=== PATIENT | male | born 1950 | race Caucasian/White ===

== ENCOUNTER 2025-04-05 16:25 | Inpatient (IN) ==
[2025-04-05] MEDS: TICAGRELOR 90 MG TAB ONE (16:40)
--- NOTE | 2025-04-05 16:41 | Emergency Department Note ---
Impression & Plan STEMI (ST elevation myocardial infarction), Heart block AV third degree ED Provider Note NAME: MERARI CORRAL AGE: 74 SEX: M : 1950 ARRIVES VIA: Ambulance INFORMANT: Patient ED PROVIDER(S): Reji Hinds DO CHIEF COMPLAINT: Syncope HPI: Patient is a 74-year-old male who presents to the ER for syncopal event. He notes that he never had any chest pain or shortness of breath but had an upset stomach and had a bowel movement. It was diarrhea. He then passed out in the bathroom. He got back up and he called EMS. He does have a history of diabetes and high blood pressure. He notes he does have some cholesterol issues. Currently again has no chest pain or shortness of breath. ADDITIONAL HISTORY OBTAINED: Per HPI Chronic Medical/Social Conditions Affecting Care: Per HPI PAST MEDICAL HISTORY:See Below PAST SURGICAL HISTORY:See Below FAMILY HISTORY:See Below SOCIAL HISTORY:See Below HOME MEDICATIONS:See Below ALLERGIES:See Below VITALS:See Below PHYSICAL EXAMINATION: GENERAL: Sitting up in bed, alert, well appearing, well nourished, no distress, non-toxic EYE EXAM: normal conjunctiva. OROPHARYNX: mucous membranes are moist NECK: supple, no nuchal rigidity, no adenopathy, non-tender LUNGS: Clear to auscultation. Normal chest wall mechanics HEART: no murmurs, S1 normal and S2 normal ABDOMEN: abdomen soft, non-tender, normo-active bowel sounds, no masses, no rebound or guarding. UPPER EXTREMITIES: upper extremities are grossly normal. LOWER EXTREMITIES: No pitting edema. NEURO EXAM: Normal sensorium, cranial nerves II-XII grossly intact, normal speech, no gross weakness of arms, no gross weakness of legs. MEDICAL DECISION MAKING: Patient is a 74-year-old male brought in by EMS where he received interpreted the EKG. Heart alert was called. He was found to be in complete heart block. IV was established and blood work was obtained. Labs showed no significant leukocytosis or anemia. BMP was remarkable for an elevated glucose. LFTs and bilirubin was unremarkable. Troponin was negative. Lipase normal. Patient was given aspirin prior to arrival. Cardiology presented at bedside updated and taken to the [facility] emergently. Patient did maintain systolic pressures of 120s while down in the ER with a heart rate in the 30s due to the third-degree block from the STEMI. Consults/Care Managements Discussions: Per MDM Triage Nursing notes reviewed. Limited review of prior medical records performed Vital Signs: reviewed and remarkable for no significant abnormalities Differential diagnosis: Cardiac ischemia, aortic dissection, pulmonary embolism, pneumothorax, pneumonia, pericarditis, myocarditis, esophageal rupture, GERD, cholecystitis, pancreatitis, musculoskeletal, as well as other pathologies. ER treatment provided: See below Diagnostics interpreted by me include EKG and cardiac monitoring as listed below: -Cardiac Monitoring: An order was placed for continuous cardiac monitoring. The monitor shows a rate of 35 with sinus rhythm. -ECG: Third-degree AV block rate of [address] segment elevations in the inferior leads as well as depressions in the high lateral leads QTc 403 -Laboratory studies:Interpreted by me as stated above in MDM and shown below. Imaging studies: Xrays: As interpreted by me: Was deferred as patient was taken emergently to [facility] CTs show: none Procedures:none Critical Care: I have personally spent 33 minutes of critical care time in the direct management of this patient. This includes bedside care, interpretation of diagnostic studies, and testing, discussion with consultants, patient, and family members, and other required patient management activities. This 33 minutes is in excess of all separately billable procedures. Past Med/Surg History Problem List (Updated 04/05/25 @ 22:00 by Reji Hinds DO) Hyperglycemia Heart block AV third degree (Acute) Cardiogenic shock STEMI (ST elevation myocardial infarction) (Acute) Encounter for pre-operative examination Pre-op testing History of prediabetes BPH w urinary obs/LUTS Urinary retention Medical History Indwelling Steve catheter present Diabetic retinopathy Hx of renal calculi a single episode - no surgery needed. BPH w urinary obs/LUTS Urinary retention Hypertension Closed hip fracture (04/17/23) Diabetes mellitus NIDDM History of hypercholesterolemia Hip fracture, left s/p Fall 04/17/23 treated at [facility] Surgical History History of tonsillectomy History of appendectomy a child H/O knee surgery as a young adult - Left knee S/P hip hemiarthroplasty Left hip 03/2023 at [facility] Family History Other No family history of adverse response to anesthesia Social History Smoking Status: Unknown if ever smoked Second Hand Exposure: No; Hx Alcohol Use: No Hx Substance Use: No Preferred Language: Hungarian Communication Ability: Effective Silk Screen Cutter Required: No Beliefs That Will Affect Care: None Current Living Situation: Spouse Feels Safe at Home: Yes Safety Concerns: Feels Safe At This Time Assistive Devices: Cane, Glasses and Walker Allergies Allergies Allergy/AdvReac Type Severity Reaction Status Date / Time No Known Allergies Allergy Verified 04/05/25 16:49 Home Meds Home Medications Medication Instructions Recorded Confirmed glipizide 5 mg tablet 5 mg PO QAM 05/09/23 04/05/25 hydrochlorothiazide 25 mg tablet 25 mg PO DAILY 04/24/24 04/05/25 lisinopril 40 mg tablet 40 mg PO QAM 04/05/25 04/05/25 Previous Rx's Medication Instructions Recorded metformin 500 mg tablet 500 mg PO BID 30 days #60 tabs 04/20/23 Results & Data (ED) Vital Signs Vital Signs - 24 hr 04/05/25 16:29 Pulse Rate 48 L Respiratory Rate 20 Blood Pressure 129/63 Blood Pressure Mean 85 Pulse Oximetry 95 Oxygen Delivery Method Nasal Cannula Oxygen Flow Rate 2 Sepsis Recent Fever Within 48 Hours No Sepsis New/Unexplained Change in Mental Status No Sepsis Action Taken by Nursing No Action Required Laboratory Data 04/05/25 16:37 04/05/25 16:37 Lab Results 04/05/25 04/05/25 Range/Units 16:37 16:39 WBC 7.90 (4.8-10.8) K/ul RBC 5.02 (4.70-6.10) M/uL Hgb 13.6 L (14.0-18.0) g/dl POC Hgb 14.3 (14.0-18.0) g/dl Hct 41.6 L (42.0-52.0) % POC Hct 42 (42-52) % MCV 82.9 (80.0-100.0) fL MCH 27.1 (25.0-34.0) pg MCHC 32.7 (32.0-36.0) g/dL RDW Std Deviation 38.6 (36.4-46.3) fL RDW Coeff of Janell 12.7 (11.5-14.5) % Plt Count 192 (130-400) K/uL MPV 10.0 (9.4-12.4) fL Immature Gran % (Auto) 0.4 % Neut % (Auto) 56.1 % Lymph % (Auto) 32.8 % [place] % (Auto) 6.8 % Eos % (Auto) 3.3 % Baso % (Auto) 0.6 % Neut # (Auto) 4.43 (1.40-6.50) K/uL Lymph # (Auto) 2.59 (1.20-3.40) K/uL [place] # (Auto) 0.54 (0.11-0.59) K/uL Eos # (Auto) 0.26 (0.00-0.50) K/uL Baso # (Auto) 0.05 (0.00-0.20) K/uL Immature Gran # (Auto) 0.03 (0.01-0.20) K/uL POC Sodium 139 (135-144) mmol/L Sodium 140 (136-145) mmol/L POC Potassium 3.9 (3.3-5.0) mmol/L Potassium 3.9 (3.5-5.1) mmol/L POC Chloride 102 (101-112) mmol/L Chloride 103 (98-107) mmol/L Carbon Dioxide 29 (21-32) mmol/L POC Total CO2 23 L (24-31) mmol/L Anion Gap 8 (3-11) POC Anion Gap 19.0 (16-25) mmol/L POC BUN 22 H (7-18) mg/dl BUN 22 (6-23) mg/dl Creatinine 0.94 (0.6-1.4) mg/dl POC Creatinine 1.1 (0.6-1.3) mg/dl Est Cr Clr Drug Dosing Not Reportable eGFR 84.54 BUN/Creatinine Ratio 23.4 H (10-20) Glucose 251 H (70-99(Fasting)) mg/dl POC Glucose (other) 239 H (70-99) mg/dl Calcium 9.1 (8.6-10.3) mg/dl POC Ioniz Calcium Salvador 1.09 L (1.12-1.32) mmol/l Total Bilirubin 0.6 (0.2-1.0) mg/dl AST 12 L (13-39) U/L ALT 11 (7-52) U/L Alkaline Phosphatase 42 (34-104) U/L Troponin I High Sens 4.1 (0-20) pg/ml Total Protein 6.7 (6.0-8.3) gm/dl Albumin 4.2 (3.4-5.0) gm/dl Globulin 2.5 (2.5-4.0) gm/dl Albumin/Globulin Ratio 1.7 (0.9-2) Lipase 30 (11-82) U/L Administered Medications Eptifibatide (Integrilin) 75 mg in 100 mls @ 15 mls/hr IV .Q6H40M [facility]; Protocol Stop: 04/06/25 07:00 Last Admin: 04/05/25 19:42 Dose: 15 mls/hr Documented By: MATTY Co-signed By: DEVORAH Magnesium Sulfate/Dextrose (Magnesium Sulfate / D5w) 1 gm in 100 mls @ 50 mls/hr IV Q2H [facility] Stop: 04/05/25 23:59 Last Admin: 04/05/25 21:55 Dose: 50 mls/hr Documented By: Infusion: 04/05/25 21:55 Dose: Infused Documented By: Admin: 04/05/25 20:23 Dose: 50 mls/hr Documented By: MATTY Insulin Aspart (Insulin Aspart Per Unit Charge) 0 units SC ACHS [facility] Stop: 05/05/25 18:29 Last Admin: 04/05/25 20:35 Dose: 3 units Documented By: MATTY Co-signed By: [facility] Admin: 04/05/25 20:19 Dose: Not Given Documented By: CLC Discontinued Medications Dopamine HCl/Dextrose (Dopamine 400mg / 250ml D5w ([facility] Use Only)) Confirm Administered Dose 400 mg IV .STK-MED ONE Stop: 04/05/25 16:55 Last Admin: 04/05/25 16:55 Dose: 5 mcg.per.kg Documented By: AAF Eptifibatide (Eptifibatide 2 Mg/Ml 10 Ml Vial ([facility] [employer] [facility] Use Only)) Confirm Administered Dose 40 mg IV .STK-MED ONE Stop: 04/05/25 17:27 Last Admin: 04/05/25 18:17 Dose: 16 ml Documented By: AAF Eptifibatide (Eptifibatide Bolus/Drip) 1 each IV NOW STA Stop: 04/05/25 18:02 Last Admin: 04/05/25 18:18 Dose: 14 each Documented By: AAF Fentanyl Citrate (Fentanyl Citrate Pf 100 Mcg/2 Ml Vial) Confirm Administered Dose 100 mcg .ROUTE .STK-MED ONE Stop: 04/05/25 16:32 Last Increment: 04/05/25 18:02 Dose: 25 mcg Documented By: AAF Heparin Sodium (Porcine) (Heparin (Porcine) 1000 Unit/Ml 10 Ml ([employer] Use Only)) Confirm Administered Dose 10,000 units .ROUTE .STK-MED ONE Stop: 04/05/25 16:32 Last Admin: 04/05/25 18:15 Dose: 12,000 units Documented By: AAF Heparin Sodium (Porcine) (Heparin (Porcine) 1000 Unit/Ml 10 Ml ([employer] Use Only)) Confirm Administered Dose 10,000 units .ROUTE .ST-MED ONE Stop: 04/05/25 17:16 Last Admin: 04/05/25 18:17 Dose: Not Given Documented By: AAF Heparin Sodium/Sodium Chloride (Heparin In Nss Infusion 1000 Unit/500 Ml (2 U/Ml) Bag) Confirm Administered Dose 3,000 units IV .STK-MED ONE Stop: 04/05/25 16:32 Last Admin: 04/05/25 18:15 Dose: 3,000 units Documented By: AAF Insulin Glargine (Lantus Per Unit Charge) 10 units SC 2100 ONE Stop: 04/05/25 21:01 Last Admin: 04/05/25 21:54 Dose: 10 units Documented By: CLC Co-signed By: CP Iodixanol (Iodixanol (Visipaque) 320 Mg/Ml 100ml) Confirm Administered Dose 1 ml IV .STK-MED ONE Stop: 04/05/25 16:32 Last Admin: 04/05/25 18:15 Dose: Not Given Documented By: AAF Ioversol (Optiray 350) Confirm Administered Dose 1 ml .ROUTE .STK-MED ONE Stop: 04/05/25 16:32 Last Admin: 04/05/25 18:15 Dose: 85 ml Documented By: AAF Lidocaine HCl (Lidocaine 1% Local 20 Ml Vial) Confirm Administered Dose 1 ml .ROUTE .STK-MED ONE Stop: 04/05/25 16:59 Last Admin: 04/05/25 18:17 Dose: 1 ml Documented By: ALEJANDRA Midazolam HCl (Midazolam Hcl 1 Mg/Ml 2ml Vial) Confirm Administered Dose 2 mg .ROUTE .STK-MED ONE Stop: 04/05/25 16:32 Last Increment: 04/05/25 18:15 Dose: 1 mg Documented By: ALEJANDRA Miscellaneous (Patient's Height &/Or Weight Needed) 1 each N/A Q2H STA Stop: 04/05/25 18:06 Last Admin: 04/05/25 19:39 Dose: Not Given Documented By: MATTY Nicardipine HCl (Nicardipine 2,000 Mcg/20 Ml Syr) Confirm Administered Dose 2,000 mcg .ROUTE .STK-MED ONE Stop: 04/05/25 16:32 Last Admin: 04/05/25 18:16 Dose: 2,000 mcg Documented By: ALEJANDRA Nitroglycerin/Dextrose (Nitroglycerin/D5w 100mcg/Ml 20ml Syr) Confirm Administered Dose 2,000 mcg .ROUTE .STK-MED ONE Stop: 04/05/25 16:32 Last Admin: 04/05/25 18:16 Dose: 2,000 mcg Documented By: ALEJANDRA Norepinephrine Bitartrate (Norepinephrine/D5w 4 Mg/250 Ml) Confirm Administered Dose 4 mg IV .STK-MED ONE Stop: 04/05/25 17:03 Last Admin: 04/05/25 17:05 Dose: 4 mg Documented By: ALEJANDRA Co-signed By: KENTON Phenylephrine HCl (Phenylephrine 100mcg/Ml 5ml Syr) Confirm Administered Dose 100 mcg .ROUTE .STK-MED ONE Stop: 04/05/25 17:03 Last Admin: 04/05/25 18:17 Dose: 100 mcg Documented By: ALEJANDRA Co-signed By: KENTON Ticagrelor (Ticagrelor 90 Mg Tab) Confirm Administered Dose 180 mg .ROUTE .STK- MED ONE Stop: 04/05/25 16:39 Last Admin: 04/05/25 16:40 Dose: 180 mg Documented By: ALEJANDRA Discharge Plan Visit Data Chief Complaint: Heart Alert ED Provider: Reji Hinds Discharge Problem: STEMI (ST elevation myocardial infarction), Heart block AV third degree Patient Disposition: Admitted As Inpatient Condition: Critical
[2025-04-05 16:49] LABS: Hematocrit (blood only) 41.6 % (42.0-52.0); Hemoglobin 13.6 g/dl (14.0-18.0); Immature Granulocytes # (auto) 0.03 K/uL (0.01-0.20); Immature Granulocytes % (auto) 0.4 %; Mean Corpuscular Hemoglobin 27.1 pg (25.0-34.0); Mean Corpuscular Volume 82.9 fL (80.0-100.0); Platelet Count 192 K/uL (130-400); RDW Standard Deviation 38.6 fL (36.4-46.3); Red Blood Count 5.02 M/uL (4.70-6.10); White Blood Count 7.90 K/ul (4.8-10.8)
--- NOTE | 2025-04-05 16:50 | Cardiology Consultation ---
Date of Consultation April 05, 2025 Assessment & Plan (1) STEMI (ST elevation myocardial infarction): Presentation consistent with inferior STEMI and recommend proceeding with emergent cardiac catheterization and likely primary PCI. No apparent contraindications to procedure. Discussed risks, benefits, alternatives of procedure with patient and they are willing to proceed. Given ticagrelor 180 mg in the ED. Further recommendations pending findings of coronary angiography. History of Present Illness History of Present Illness 74-year-old man here with acute chest pain and ECG concerning for acute RI. Patient seen emergently in the ED after heart alert activated en route. No significant past cardiac history. Cardiac risk factors include type 2 diabetes on oral therapy, dyslipidemia. Other medical issues include BPH and prior hip fracture post hip replacement. Symptoms began soon after defecating. States he became increasingly nauseated and then felt weak collapsed from the toilet. Does not feel like he lost consciousness. Denies any chest pain. No real shortness of breath, no palpitations. Denies similar symptoms in the past. Continued to feel unwell on the floor and his family called EMS. In the ED presenting ECG showed complete heart block block with ventricular rate in the 30s and inferior ST elevations. Hemodynamically stable and chest pain- free. Nausea persisted but improved after Zofran Family history: Father had CABG in his 80s Allergies Allergy/AdvReac Type Severity Reaction Status Date / Time No Known Allergies Allergy Verified 04/05/25 16:49 Home Medications Medication Instructions Recorded Confirmed Type metformin 500 mg tablet 500 mg PO BID 30 days #60 tabs 04/20/23 04/05/25 Rx glipizide 5 mg tablet 5 mg PO QAM 05/09/23 04/05/25 History hydrochlorothiazide 25 mg tablet 25 mg PO DAILY 04/24/24 04/05/25 History lisinopril 40 mg tablet 40 mg PO QAM 04/05/25 04/05/25 History Patient History Medical History Indwelling Steve catheter present Diabetic retinopathy Hx of renal calculi a single episode - no surgery needed. BPH w urinary obs/LUTS Urinary retention Hypertension Closed hip fracture (04/17/23) Diabetes mellitus NIDDM History of hypercholesterolemia Hip fracture, left s/p Fall 04/17/23 treated at [facility] Surgical History History of tonsillectomy History of appendectomy a child H/O knee surgery as a young adult - Left knee S/P hip hemiarthroplasty Left hip 03/2023 at [facility] Family History Other No family history of adverse response to anesthesia Social History Smoking Status: Unknown if ever smoked Second Hand Exposure: No; Hx Alcohol Use: No Hx Substance Use: No Preferred Language: Bahamian Communication Ability: Effective Tai Chi Instructor Required: No Beliefs That Will Affect Care: None Current Living Situation: Spouse Feels Safe at Home: Yes Safety Concerns: Feels Safe At This Time Assistive Devices: Cane, Glasses and Walker Review of Systems Review of Systems: Not completed in the setting of emergent situation Physical Exam Physical Exam: General: Comfortable HEENT: Sclerae anicteric Lungs: Clear anteriorly Cardiac: Bradycardic, regular Vascular: 2+ radial Abdomen: Soft, nontender Extremities: Well perfused, no peripheral edema Neuro: Nonfocal Psych: Alert orient x3, normal affect and mood Results & Data Vital Signs (Past 12 Hours) Vital Signs Pulse Resp BP Pulse Ox O2 Del Method O2 Flow Rate 04/05/25 16:29 48 L 20 129/63 95 Nasal Cannula 2 PG Care Time/CCT Total # of Minutes Spent Total Time Spent with Patient: Total time spent is greater than 50% in coordination of care (as documented) at patient's floor/unit and/or counseling patient: Coding Level of Care Code 02602 OFFICE CONSULT LVL M Diagnoses STEMI (ST elevation myocardial infarction) I21.3
--- NOTE | 2025-04-05 16:50 | Pre Anesthesia Assessment ---
Date of Service April 05, 2025 Pre Sedation Assessment Vital Signs Pulse Resp BP Pulse Ox O2 Del Method O2 Flow Rate 04/05/25 16:47 38 L 04/05/25 16:29 48 L 20 129/63 95 Nasal Cannula 2 Cardiovascular + bradycardic Respiratory + respiratory effort normal Pre-Sedation Airway Assessment Smoking Status: Unknown if ever smoked Oral Cavity: + Dental Abnormalities Mallampati Class: III ASA: ASA4 Procedure Planning Contraindications for Sedation: none Current Medications Reviewed: Yes Notes The planned sedation has been discussed with the patient. Informed Consent was obtained. I have identified the patient, determined the appropriateness of sedation and have assessed the patient immediately prior to the procedure. All medicine(s) and interventions are by my order.
[2025-04-05] MEDS: NOREPINEPHRINE/D5W 4 MG/250 ML IV ONE (17:05)
[2025-04-05 17:08] LABS: Alanine Aminotransferase 11 U/L (7-52); Albumin Globulin Ratio 1.7 (0.9-2); Alkaline Phosphatase 42 U/L (34-104); Anion Gap 8 (3-11); Bilirubin,Total 0.6 mg/dl (0.2-1.0); Blood Urea Nitrogen 22 mg/dl (6-23); Calcium 9.1 mg/dl (8.6-10.3); Carbon Dioxide 29 mmol/L (21-32); Chloride 103 mmol/L (98-107); Globulin 2.5 gm/dl (2.5-4.0); Glucose 251 mg/dl (70-99(Fasting)); Lipase 30 U/L (11-82); Potassium 3.9 mmol/L (3.5-5.1); Sodium 140 mmol/L (136-145); Total Protein 6.7 gm/dl (6.0-8.3)
[2025-04-05] MEDS ORDERED: PHARMACY GLYCEMIC MGMT CONSULT PRN (17:52)
--- NOTE | 2025-04-05 17:54 | Post Anesthesia Assessment ---
Date of Service April 05, 2025 Post Sedation Assessment Vital Signs Pulse Resp BP Pulse Ox O2 Del Method O2 Flow Rate 04/05/25 16:47 38 L 04/05/25 16:29 48 L 20 129/63 95 Nasal Cannula 2 Recovery Score Activity: Moves 4 extremities Respiration: Deep Breath/Cough Circulation: +/-20% PreAnes Value Consciousness: Fully Awake Oxygen Saturation: O2 needed for >90% Discharge Sedation Level of Care: Fast Track Phase II
--- NOTE | 2025-04-05 17:58 | Post Operative Brief Note ---
Cardiology Brief Post Op Date of Surgery April 05, 2025 Pre & Post Diagnosis Inferior STEMI Complete heart block Procedure Cardiac cath PCI to RCA with single TALYA Temporary transvenous pacemaker placement Project Manager/Design Manager Rell Parsons MD Component Technician Showers Estimated Blood Loss 20 Findings See Below 100% mid RCA occlusion. 20% distal left main. 50% proximal LAD 2.75 x 28 mm Xience drug-eluting stent to mid RCA, postdilated with 4.0 NC LVEDP 12 Complete heart block complicated by transient cardiogenic shock requiring transvenous pacemaker placement dopamine, norepinephrine. At completion of procedure on only minimal norepinephrine (0.04 mcg/KG/minute). Pacemaker VVI at 60 bpm, 5 mA. Residual thrombus and small distal PDA, posterior AV branch. Started on Integrilin infusion, to run for 12 hours. Anesthesia Type RN Sedation Complications none Disposition Disposition: Surgical ICU
[2025-04-05] MEDS ORDERED: STAT IV Infusion **Titration per Protocol STA (18:05)
[2025-04-05] MEDS: IODIXANOL (VISIPAQUE) 320 MG/ML 100ML IV ONE (18:15)
[2025-04-05] MEDS ORDERED: NOREPINEPHRINE/D5W 4 MG/250 ML PLCT IV SCH (18:15)
[2025-04-05] MEDS: HEPARIN (PORCINE) 1000 UNIT/ML 10 ML (CATH LAB USE ONLY) ONE ×2 (18:15→18:17)
[2025-04-05] MEDS: OPTIRAY 350 ONE (18:15)
[2025-04-05] MEDS: MIDAZOLAM HCL 1 MG/ML 2ML VIAL ONE (18:15)
[2025-04-05] MEDS: niCARdipine 2,000 MCG/20 ML SYR ONE (18:16)
[2025-04-05] MEDS: NITROGLYCERIN/D5W 100MCG/ML 20ML SYR ONE (18:16)
[2025-04-05] MEDS: EPTIFIBATIDE 2 MG/ML 10 ML VIAL (CATH LAB USE ONLY) IV ONE (18:17)
[2025-04-05] MEDS: PHENYLEPHRINE 100MCG/ML 5ML SYR ONE (18:17)
[2025-04-05] MEDS: LIDOCAINE 1% LOCAL 20 ML VIAL ONE (18:17)
[2025-04-05] MEDS: EPTIFIBATIDE BOLUS/DRIP IV STA (18:18)
--- NOTE | 2025-04-05 18:24 | History & Physical Report ---
Date of Service April 05, 2025 Assessment & Plan (1) Heart block AV third degree: (2) STEMI (ST elevation myocardial infarction): (3) Hyperglycemia: (4) Cardiogenic shock: Plan #Cardiogenic Shock/ STEMI/ third degree AV block in a Patient with PMH of dyslipidemia/ HTN admitted to the ICU for above. S/p heart cath : Inferior STEMI/100% occluded mid RCA with heavy thrombus burden Patient on pressores temporary pacemaker Loaded with ticagrelor/ASA continue statin #Diabetes Mellitus 2 with hyperglycemia glycemic control critical care glucose management #Dyslipidemia continue statin Admission and Anticipated Discharge Date Admission Date: April 05, 2025 History of Present Illness Chief Complaint: heart alert Primary Care Provider: Rell Ron MD 74 yo male rwith PMH of HTN, Dyslipidemia, presents to the hospital after having a syncopal episode. Patient reported having chest pain and abdominal pain after a bowel movement. This then led to an episode of nausea and vomiting. Patient then passed out around 3 pm. His heard a thud and found him and immediately called 911. Patient was placed in an ambulance to the ED for a heart block and a STEMI. Allergies Allergy/AdvReac Type Severity Reaction Status Date / Time No Known Allergies Allergy Verified 04/05/25 16:49 Home Medications Medication Instructions Recorded Confirmed Type metformin 500 mg tablet 500 mg PO BID 30 days #60 tabs 04/20/23 04/05/25 Rx glipizide 5 mg tablet 5 mg PO QAM 05/09/23 04/05/25 History hydrochlorothiazide 25 mg tablet 25 mg PO DAILY 04/24/24 04/05/25 History lisinopril 40 mg tablet 40 mg PO QAM 04/05/25 04/05/25 History Past Med/Surg History Problem List Hyperglycemia Heart block AV third degree (Acute) Cardiogenic shock STEMI (ST elevation myocardial infarction) (Acute) Encounter for pre-operative examination Pre-op testing History of prediabetes BPH w urinary obs/LUTS Urinary retention Medical History Indwelling Steve catheter present Diabetic retinopathy Hx of renal calculi a single episode - no surgery needed. Hypertension Closed hip fracture (04/17/23) Diabetes mellitus NIDDM History of hypercholesterolemia Hip fracture, left s/p Fall 04/17/23 treated at [facility] Surgical History History of tonsillectomy History of appendectomy a child H/O knee surgery as a young adult - Left knee S/P hip hemiarthroplasty Left hip 03/2023 at [facility] Family History Other No family history of adverse response to anesthesia Social History Smoking Status: Unknown if ever smoked Second Hand Exposure: No; Hx Alcohol Use: No Hx Substance Use: No Preferred Language: Syrian Communication Ability: Effective Edging Machine Catcher Required: No Beliefs That Will Affect Care: None Current Living Situation: Spouse Feels Safe at Home: Yes Safety Concerns: Feels Safe At This Time Assistive Devices: Cane, Glasses and Walker Review of Systems Constitutional: no fever and no body aches Eyes: no blind spots Ear, Nose, Mouth, Throat: no ear pain Respiratory: no cough Cardiovascular: + chest pain Gastrointestinal: + abdominal pain, + nausea and + vomitin g Genitourinary: no dysuria Musculoskeletal: no back pain Integumentary: no lesions Neurologic: no gait abnormality Psychiatric: no behavioral changes Endocrine: no fatigue Hematologic / Lymphatic: no easy bleeding Allergy / Immunological: no GI upset with certain foods Physical Exam Constitutional: WD/WN, vitals as above Eyes: PERRL, conjunctivae normal, anicteric sclerae ENMT: external ear and nose normal, oropharynx normal Neck: trachea midline, no thyromegaly Respiratory: normal respiratory effort, lungs clear to auscultation Cardiovascular: RRR, no murmur, no edema Gastrointestinal (Abdomen): normal bowel sounds, soft, nontender, no hepatosplenomegaly Musculoskeletal: no cyanosis or clubbing, extremities motor strength 5/5 (right wrist hematoma) Skin: no rashes, warm and dry Neurologic: PERRL, EOMI, accommodation nl, no face palsy, no dysarthria Psychiatric: A+Ox3, euthymic affect Lymphatic: no cervical or axillary lymphadenopathy Results & Data Results & Data Vital Signs (Past 12 Hours) Vital Signs Pulse Resp BP Pulse Ox O2 Del Method O2 Flow Rate 04/05/25 16:47 38 L 04/05/25 16:29 48 L 20 129/63 95 Nasal Cannula 2 PG Care Time/CCT Total # of Minutes Spent Total Time Spent with Patient: Total time spent is greater than 50% in coordination of care (as documented) at patient's floor/unit and/or counseling patient: Coding Level of Care Code 65255 INT INP/OBS CARE 3/75MIN Diagnoses Heart block AV third degree I44.2 STEMI (ST elevation myocardial infarction) I21.3 Hyperglycemia R73.9 Cardiogenic shock R57.0
--- NOTE | 2025-04-05 18:28 | Cardiac Catheterization ---
[facility] Data: Manager Pharmacy Cardiac Status Clinical evaluation leading to the procedure CAD Presenation: STEMI Anginal Classification: CCS IV Diagnostic Physicians Name: Rell Parsons MD Closure Device Recommendations: PCI without planned CABG Cardiac Cath Procedure Full Procedure Date April 05, 2025 Pre-Procedure Diagnosis Pre-Procedure Diagnosis: STEMI and Arrhythmia (Complete heart block) AUC Score AUC Score: 9 Post-Procedure Diagnosis Post-Procedure Diagnosis: Severe CAD, Successful PCI and Normal Intracardiac Pressures Procedure(s) Performed Procedure(s) Performed: Coronary Angiography, Left Heart Cath, Drug Eluting Stent and Temporary Pacemaker Intelligence Research Specialist Rell Parsons MD Magnetometer Operator(s) Showers Estimated Blood Loss Estimated Blood Loss: 25 Medication(s) Medication(s): Atropine, Dopamine, Fentanyl, Heparin, Integrilin, Lidocaine 1%, Wander-Synephrine, Nicardipine, Nitroglycerin, Norepinephrine and Versed Medication(s): Ticagrelor Summary of Findings Indication: STEMI/Heart Alert Access: 6 Fr right radial artery, 6 Fr right common femoral vein Catheters: [place], pigtail, JR4 guide Findings: LM -normal caliber, 20% distal disease LAD -medium caliber, 40-50% early-mid disease, 30% distal disease. Distal vessel wraps around apex. Small D1 with 80% proximal disease. Circumflex -medium caliber, 20-30% proximal disease mid to distal luminal irregularities. OM 2, left PLB without significant disease. RCA -dominant, large caliber, 100% acute mid occlusion. LVEDP -12 -- PCI -- Antithrombotic therapy: Heparin, ticagrelor, Integrilin Procedure: After diagnostic images patient had persistent bradycardia to the 30s and worsening hypotension despite atropine and fluids. Started on dopamine and received bolus of phenylephrine Right CFV accessed with placement of 6 Fr sheath and 6 Fr [place] navigated into RV under fluoroscopic guidance With successful pacing BP improved. Started on norepinephrine and dopamine weaned off. RCA cannulated with JR4 guide BMW wire passed across lesion into distal vessel Mid RCA lesion predilated with 2.5 compliant balloon Dilated lesion stented with 2.75 x 28 mm Xience drug-eluting stent Stent post-dilated with 3.5 noncompliant balloon IC vasodilators administered for spasm Residual narrowing in mid RCA and further postdilated with 4.0 NC balloon Distal RPDA and distal right posterior AV branch with residual thrombus. Started on Integrilin infusion Post procedure DIDIER 3 flow, stent well expanded with minimal residual stenosis. Arterial Closure: TR band Summary: 1. Inferior STEMI/100% occluded mid RCA with heavy thrombus burden 2. Moderate non-culprit coronary artery disease - 4050% earlymid LAD. 80% proximal small D1 20% distal left main 20-30% proximal circumflex 3. Normal intracardiac filling pressure 4. Complete heart block 5. Cardiogenic shock 6. Successful PCI of mid RCA with single drug-eluting stent (2.75 x 20 mm Xience; postdilated with 4.0 NC balloon). 7. Successful placement of transvenous temporary pacemaker (final settings VVI at 60 bpm, 5 mA). Recommendations: Admit to ICU for continued monitoring Will leave transvenous pacemaker in place overnight. Likely remove in the morning. Loaded with ticagrelor 180 mg in ED Continue Integrilin infusion for 12 hours Continue dual-antiplatelet therapy for at least 1 year. Trend troponins until peak, Check Echo Wean off norepinephrine. Resume low-dose MIKEL as BP allows High-dose statin Hemodynamics Rest Ao:: 68/34/56 Final Ao: 117/55/76 LV: 114/12 Recommendations Recommendations: PCI without planned CABG Radiation Exposure (mGy) 1644 Contrast (mls) 85 Anesthesia Moderate 1401-1038 Procedural Complication(s) None Disposition Manager Pharmacy Holding/Recovery I attest to the content of the Intraoperative Record and any orders documented therein. Any exceptions are noted below. [facility] Card Cath Procedure Codes Cardiac Catheterization Procedure 1: Cardiovascular Cath Procedures: 05758 Coronaries and LHC (+/-LV) Therapeutic Services & Ancillary Procedure 1: Cardiovascular Tx and Anc Procedures: 18662 Temp Pacer Insert Moderate Sedation Procedure 1: Sedation/Anesthesia: 67627 Mod Sedation by the same physician;Init15 Min Child Age 5 & Up Procedure 2: Sedation/Anesthesia: 27567 Mod Sedation by the same physician; Ea [id number] Minutes Stenting Procedure 1: Cardiovascular Stent Procedures: 59222 Perc transluminal revascularization of acute sub/total occl, aMI PG Care Time/CCT Total # of Minutes Spent Total Time Spent with Patient: Total time spent is greater than 50% in coordination of care (as documented) at patient's floor/unit and/or counseling patient:
[2025-04-05] MEDS ORDERED: CARBOHYDRATES FOR HYPOGLYCEMIA PO PRN (18:45)
[2025-04-05] MEDS ORDERED: DEXTROSE 50% 50 ML SYRINGE IV PRN (18:45)
[2025-04-05] MEDS ORDERED: GLUCOSE 40% GEL 15 GM TUBE PO PRN (18:45)
[2025-04-05] MEDS ORDERED: GLUCAGON FOR INJ 1 MG VIAL SQ PRN (18:45)
[2025-04-05] MEDS ORDERED: GLUCOSE 10 TAB/TUBE PO PRN (18:45)
[2025-04-05] MEDS: Patient's HEIGHT &/or WEIGHT Needed STA (19:39)
--- NOTE | 2025-04-05 19:40 | Critical Care Consultation ---
Date of Consultation April 05, 2025 Assessment & Plan (1) STEMI (ST elevation myocardial infarction): (2) Cardiogenic shock: (3) Heart block AV third degree: (4) Hyperglycemia: Plan Reason Critically Ill: 1. STEMI, inferior with RV wall involvement 2. 3rd degree AVB s/p TVP 3. Moderate CAD 4. Hyperlipidemia 5. Hypertension 6. NIDDMII (6.6%) Neuro - CAM ICU: Negative RASS GOAL 0 APAP PRN pain/fever HOB 30 Cardiac - Cardiology consult, appreciate continued recommendations Integrilin until 04/06/2025 0700 Resume ACEI, DAPT, statin Trend troponin, repeat EKG PRN TTE ordered, lipid panel, A1c MAP goal > 65mmHg Respiratory - No acute concerned SpO2 goal > 92% Aspiration precautions, IS/Flutter GI - Diet: Advance to heart healthy as tolerated SUP: PPI Bowel regimen: Senokot RENAL/LYTES - Follow up BMP in AM Replete electrolytes as indicated Empiric Mg now No indication for harris Maintain net even to net negative ENDO - A1c pending BG 140-180 per [facility] guidelines ISS if needed while inpatient HEME - Continue Integrilin overnight Coags ID - No acute concerns LINES/TUBES/DRAINS - PIV x2 DVT PROPHYLAXIS - DAPT ongoing. Start tomorrow DISPOSITION - ICU overnight CODE STATUS - Full I have personally spent 35 minutes of critical care time in the direct management of this patient. This is a life/limb threatening event. This includes time spent evaluating patient, direct bedside care, chart review, placing orders, interpretation of diagnostic studies, discussion with consultants, patient, and family members, as well as other required patient management activities. This time is exclusive of all separately billable procedures, and teaching time and separate from and in addition to any other critical care service time. Thank you for allowing us to participate in the care of this patient. Please refer to my attending physician's documentation for any further recommendations. History of Present Illness Reason for Consultation: STEMI Requesting Physician: Chelsey Attending Physician: Neo Barbosa History of Present Illness Mr. Don Barraza is a pleasant 74YOM with a history of poor medical follow up, HTN/HLD, BPH s/p TURP, NIDDMII (6.6%) who presented to [facility] ED the evening of 04/05/2025 after a syncopal episode at home. On arrival to ED patient was found to be in complete heart block. STEMI on 12-lead. He received IV heparin as well as Brilinta in 180mg in ED. Subsequently underwent cardiac catheterization with PCI to RCA via TALYA x1. He had 50% residual non-culprit disease of proximal LAD. Stent had DIDIER III flow. He did develop cardiogenic shock requiring dopamine and norepinephrine. TVP was placed VVI 60bpm 5mA. He is admitted to ICU for continuation of care. Patient seen in ICU 103. He is AAOx3. Family at bedside. Patient is in NSR, normotensive off vasopressors. Saturating well on room air. He has no current complaints. R wrist access site is hemostatic, RN reports there was a hematoma which has been controlled. He has some discoloration and stiffness of this hand with capillary refill 3 seconds. 2nd TR band applied by Dr. Parsons who has evaluated at bedside. Post-procedure EKG showing NSR and continued inferior STEMI changes. QTc 472. Labs revealing hyperglycemia, very slight Cr bump from prior (2022). No imaging performed. ROS + R hand discomfort, otherwise 10-point ROS negative including but not limited to chest pain, dyspnea, nausea, abdominal pain, numbness/paresthesias, headache, dizziness, edema. Patient does snore and has slept in a recliner since his hip surgery in 2022. Initial A1c in 2022 was 11.1%, now on oral antihyperglycemics with better control. Does not check sugars at home. Allergies Allergy/AdvReac Type Severity Reaction Status Date / Time No Known Allergies Allergy Verified 04/05/25 16:49 Home Medications Medication Instructions Recorded Confirmed Type metformin 500 mg tablet 500 mg PO BID 30 days #60 tabs 04/20/23 04/05/25 Rx glipizide 5 mg tablet 5 mg PO QAM 05/09/23 04/05/25 History hydrochlorothiazide 25 mg tablet 25 mg PO DAILY 04/24/24 04/05/25 History lisinopril 40 mg tablet 40 mg PO QAM 04/05/25 04/05/25 History Patient History Medical History Indwelling Harris catheter present Diabetic retinopathy Hx of renal calculi a single episode - no surgery needed. BPH w urinary obs/LUTS Urinary retention Hypertension Closed hip fracture (04/17/23) Diabetes mellitus NIDDM History of hypercholesterolemia Hip fracture, left s/p Fall 04/17/23 treated at [facility] Surgical History History of tonsillectomy History of appendectomy a child H/O knee surgery as a young adult - Left knee S/P hip hemiarthroplasty Left hip 03/2023 at [facility] Family History Other No family history of adverse response to anesthesia Social History Smoking Status: Unknown if ever smoked Second Hand Exposure: No; Hx Alcohol Use: No Hx Substance Use: No Preferred Language: Hungarian Communication Ability: Effective Clinical Product Manager Required: No Beliefs That Will Affect Care: None Current Living Situation: Spouse Feels Safe at Home: Yes Safety Concerns: Feels Safe At This Time Assistive Devices: Cane, Glasses and Walker Review of Systems Review of Systems: All systems reviewed & are unremarkable except as noted in Subjective Physical Exam Constitutional: well developed, well nourished and average body habitus; no acute distress Eyes: PERRL, conjunctivae normal, anicteric sclerae ENMT: external ear and nose normal, oropharynx normal 1 central incisor is absent Neck: trachea midline, no thyromegaly Respiratory: normal respiratory effort, lungs clear to auscultation Cardiovascular: Rate/Rhythm: regular rate and regular rhythm Heart Sounds: no murmur Vessels: no JVD and no carotid bruit Extremities: normal capillary refill; no edema capillary refill R hand diminished with TR band in place Gastrointestinal (Abdomen): normal bowel sounds, soft, nontender, no hepatosplenomegaly Musculoskeletal: Head/Neck/Chest: normocephalic and head atraumatic Extremities: strength 5/5 throughout Warm and well-perfused peripherally. R hand as above Skin: no rashes, warm and dry Neurologic: PERRL, EOMI, accommodation nl, no face palsy, no dysarthria Genitourinary: Deferred Results & Data Results & Data Vital Signs (Past 12 Hours) Vital Signs Pulse Resp BP Pulse Ox O2 Del Method O2 Flow Rate 04/05/25 19:15 94 H 20 94 04/05/25 19:09 93 H 17 96 04/05/25 18:51 95 H 21 97 04/05/25 18:45 146/88 H 04/05/25 18:42 97 H 28 H 94 04/05/25 18:38 152/88 H 04/05/25 18:36 98 H 18 96 04/05/25 18:33 97 H 24 97 04/05/25 18:33 147/82 H 04/05/25 18:30 95 H 18 96 04/05/25 18:21 95 H 23 95 Room Air 04/05/25 18:15 130/86 04/05/25 16:47 38 L 04/05/25 16:29 48 L 20 129/63 95 Nasal Cannula 2 Laboratory Results Reviewed Diagnostic Findings Reviewed Medications Administered See MAR Coding Level of Care Code 57518 IN/OBS CONSULT LVL 2,35M Diagnoses STEMI (ST elevation myocardial infarction) I21.3 Cardiogenic shock R57.0 Heart block AV third degree I44.2 Hyperglycemia R73.9 Time Spent (min) 35
[2025-04-05] MEDS: EPTIFIBATIDE 75 MG/100 ML VIAL IV SCH (19:42)
[2025-04-05] MEDS: INSULIN ASPART PER UNIT CHARGE SC SCH (20:19)
[2025-04-05] MEDS: MAGNESIUM SULFATE / D5W 1 GM/100 ML BAG IV SCH (20:23)
[2025-04-05] MEDS: LANTUS PER UNIT CHARGE SC ONE (21:54)
[2025-04-05] MEDS: ONDANSETRON INJ 2 MG/ML 2 ML VIAL IV PRN (23:09)
[2025-04-06] MEDS: INSULIN ASPART PER UNIT CHARGE SC SCH (00:27)
[2025-04-06] MEDS: PROCHLORPERAZINE 5 MG in SYRINGE 4 ML IV ONE (00:35)
[2025-04-06 04:54] LABS: Hematocrit (blood only) 37.2 % (42.0-52.0); Hemoglobin 12.9 g/dl (14.0-18.0); Immature Granulocytes # (auto) 0.05 K/uL (0.01-0.20); Immature Granulocytes % (auto) 0.4 %; Mean Corpuscular Hemoglobin 28.6 pg (25.0-34.0); Mean Corpuscular Volume 82.5 fL (80.0-100.0); Platelet Count 178 K/uL (130-400); RDW Standard Deviation 38.8 fL (36.4-46.3); Red Blood Count 4.51 M/uL (4.70-6.10); White Blood Count 11.47 K/ul (4.8-10.8)
[2025-04-06] MEDS: LACTATED RINGER'S 500 ML IV ONE ×3 (05:00→16:45)
[2025-04-06 05:11] LABS: Anion Gap 9.0 (3-11); Blood Urea Nitrogen 24.0 mg/dl (6-23); Calcium 8.8 mg/dl (8.6-10.3); Carbon Dioxide 30.0 mmol/L (21-32); Chloride 103.0 mmol/L (98-107); Cholesterol 196.0 mg/dl (0-200); Creatinine Clr Calc Pharmacy 90.4 ml/min; Glucose 184.0 mg/dl (70-99(Fasting)); HDL Cholesterol 39.0 mg/dl; Magnesium 2.2 mg/dl (1.7-2.4); Potassium 3.9 mmol/L (3.5-5.1); Sodium 142.0 mmol/L (136-145); Triglycerides 63.0 mg/dl (0-150)
[2025-04-06] MEDS: LANTUS PER UNIT CHARGE SC SCH (08:11)
[2025-04-06] MEDS: ACETAMINOPHEN 325 MG TAB PO PRN (08:12)
[2025-04-06] MEDS: TICAGRELOR 90 MG TAB PO SCH (08:12)
[2025-04-06] MEDS: hydroCHLOROthiazide 25 MG TAB PO SCH (08:13)
[2025-04-06] MEDS: ASPIRIN 81 MG ECTAB PO SCH (08:13)
[2025-04-06] MEDS: ATORVASTATIN 40 MG TAB PO SCH (08:14)
[2025-04-06] MEDS: DOCUSATE SODIUM/SENNA 50/8.6MG TAB PO SCH (08:14)
--- NOTE | 2025-04-06 08:22 | Critical Care Progress Note ---
Date of Service April 06, 2025 Assessment & Plan (1) STEMI (ST elevation myocardial infarction): (2) Cardiogenic shock: (3) Heart block AV third degree: (4) Diabetes mellitus: Plan Patient is a 74-year-old male with a past medical history significant for hypertension, hyperlipidemia, non-insulin dependent diabetes mellitus type 2 who presented to the hospital after an episode of syncope at home. In the emergency department he was found to be in complete heart block with evidence of STEMI on twelve-lead EKG. The patient was initiated on heparin and was given Brilinta. He was taken emergently to left heart catheterization. The patient was found to have 100% RCA occlusion and underwent balloon dilation and drug-eluting stent placement x 1. The patient was hypotensive and bradycardic. He received fluid bolus, dopamine, phenylephrine, norepinephrine and atropine. A TVP was inserted and the patient's blood pressure improved after pacing was initiated. The patient was admitted to the medical ICU and critical care was consulted. Reason Critically Ill: ST elevation myocardial infarction, status post [facility] 04/05/2025 with TALYA to RCA Cardiogenic shock Hide agreed heart block Diabetes mellitus, known insulin dependent Neuro: Awake and alert. No deficits. No concerns at this time. Cardiac: Status post left heart catheterization 04/05/2025: RCA had 100% acute mid occlusion, LAD and circumflex with nonobstructive disease. Drug-eluting stent and balloon dilation. Cardiogenic shock Presented with bradycardia and hypotension, received fluid bolus, dopamine, phenylephrine and atropine. Blood pressure improved after TVP was placed. -Patient was on a Integrilin infusion, had oozing from TVP insertion site so this was held. -Cardiology is consulted and following along. Appreciate assistance with case. -Aspirin, Brilinta and statin. -No longer in shock. Has not required temporary pacing this morning. Heart rate is 80s. Cardiology removed TVP today. Respiratory: On room air. No wheezing or shortness of breath. Chest x-ray on admission appe ars clear. GI: Intermittent nausea overnight when he was bradycardic. This has resolved at this time. Cardiac and diabetic diet has been ordered. RENAL/LYTES: No evidence of MARÍA. Making good urine. Received total of 1 L of fluid overnight when the patient was nauseous and not maintaining good p.o. intake. Electrolytes acceptable. : Good urine output. History of TURP. ENDO: History of noninsulin-dependent type 2 diabetes. A1c is pending. Blood sugar acceptable today. HEME: Did have some oozing when he was on the Integrilin infusion. This is on hold. Hemoglobin is stable. ID: No evidence of acute infection. No antibiotics indicated. Feeding: Cardiac and diabetic diet Fluids: None Analgesia: None Activity: Bedrest while TVP is in place. Thromboprophylaxis: Will place SCDs while in bed. Ulcer prophylaxis: Not indicated Glycemic control: Sli basal bolus insulin ding scale insulin, Lantus Bowels: Docusate senna Indwelling catheters: TVP in right groin Antibiotics: None Plan: Patient is overall doing well this morning status post STEMI with TALYA to RCA x 1. Patient is no longer in shock. He is no longer requiring pacing as of this morning. TVP out. Patient will need to stay in the ICU overnight. On DAPT and statin. I have personally spent 45 minutes of critical care time in the direct management of this patient. This is a life/limb threatening event. This includes time spent evaluating patient, direct bedside care, chart review, placing orders, interpretation of diagnostic studies, discussion with consultants, patient, and family members, as well as other required patient management activities. This time is exclusive of all separately billable procedures, and teaching time and separate from and in addition to any other critical care service time. Admission and Anticipated Discharge Date Admission Date: April 05, 2025 Subjective Past 24-hour events: Patient seen and examined this morning during rounds. Admitted to the ICU after STEMI with RCA stent and heart block requiring TVP. Overnight the patient did well. Was on a Integrilin infusion however was oozing from his TVP insertion site in the right groin so this was stopped. The patient was intermittently bradycardic requiring pacing overnight and during these episodes of bradycardia was nauseous. The patient also had a large hematoma in his right wrist at the cardiac catheterization site that required pressure bandaging. Rounding: Patient is doing well this morning. Awake and alert, denies any active nausea, chest pain, chest pressure or shortness of breath. He is resting comfortably on room air. Heart rate is 80s, not paced currently. Not having a great appetite but interested in trying some cream of wheat this morning and maybe some soup for lunch. Receiving a 500 cc bolus. Patient is resting comfortably on room air. The right groin at the TVP insertion site is bandaged, there is some old blood partially saturating the bandage. No active bleeding. No hematoma appreciated. The right wrist is bruised and slightly swollen. Hand is somewhat cool but there is good capillary leave well and no mottling of the extremity. Intake: 1280 mL Output: 1885 mL Net: -104 mL Feeding: Cardiac and diabetic diet IV infusions: None Indwelling catheters: TVP in right groin Laboratory: CBC: Hemoglobin 12.9, WBC 11.4, platelets 178 Chemistry: Sodium 142, potassium 3.9, chloride 103, bicarb 30, bun 24, creatinine 0.84, glucose 184 Review of Systems Review of Systems: A 12 point review of systems was obtained in detail. Negative except as noted in HPI. Physical Exam Physical Exam: Physical examination: General: Well-appearing, well-kept, well-nourished and not in acute distress. HEENT: Normocephalic, atraumatic. Extraocular movements intact. Sclera are nonicteric. No JVD appreciated. Skin: Warm and dry. No rashes appreciated. No jaundice appreciated. -Right groin dressing partially saturated with blood, TVP in place. -Right wrist with mild bruising and swelling, good capillary refill. Cardiovascular: Heart is a regular rate and rhythm, no murmurs appreciated on my exam. No significant lower extremity edema. -Not actively paced. TVP is in place set at a rate of 60, patient is beating in the 80s on his own at this time. Lungs: Clear bilaterally, no wheezing appreciated. No crackles. Nontachypneic. Resting comfortably on room air. Abdomen: Nondistended, nontender to palpation. No bruising. Musculoskeletal: Normal muscle mass and tone. No gross joint deformity abnormalities. No effusions appreciated. Neurologic: Awake and alert, oriented. CN II through XII are grossly intact. Speech is fluent. Nonfocal exam. Psychiatric: Appropriate cooperative during my exam. Results & Data Results & Data Vital Signs (Past 12 Hours) Vital Signs Pulse Resp BP Pulse Ox 04/06/25 06:00 120/64 04/06/25 05:54 83 20 97 04/06/25 05:42 81 18 96 04/06/25 05:30 139/70 04/06/25 05:24 85 14 98 04/06/25 05:18 81 13 98 04/06/25 05:00 127/68 04/06/25 04:57 77 19 97 04/06/25 04:33 78 18 96 04/06/25 04:30 99/61 L 04/06/25 04:00 103/59 L 04/06/25 04:00 76 14 97 04/06/25 03:24 78 16 96 04/06/25 03:06 78 17 93 04/06/25 03:00 120/67 04/06/25 02:36 77 17 95 04/06/25 02:30 115/63 04/06/25 02:09 75 12 93 04/06/25 02:00 130/73 04/06/25 01:33 82 17 95 04/06/25 01:30 143/74 H 04/06/25 01:27 76 12 95 04/06/25 01:00 136/71 04/06/25 00:51 77 15 95 04/06/25 00:42 80 15 95 04/06/25 00:30 143/77 H 04/06/25 00:00 152/90 H 04/06/25 00:00 79 04/05/25 23:51 79 12 97 04/05/25 23:42 82 15 96 04/05/25 23:30 160/92 H 04/05/25 23:09 79 14 96 04/05/25 23:06 149/82 H 04/05/25 21:45 150/103 H 04/05/25 21:30 87 18 99 04/05/25 21:30 165/91 H 04/05/25 21:00 83 13 97 04/05/25 20:30 125/77 04/05/25 20:30 90 22 97 04/05/25 20:15 130/72 04/05/25 20:12 93 H 24 97 04/05/25 20:03 94 H 25 H 98 04/05/25 20:00 135/80 04/05/25 19:57 92 H 28 H 99 [place] [address] CRITICAL CARE 1ST 30-74M Patient Type New History Detailed Exam Detailed Medical Decision Making Moderate Complexity Diagnoses STEMI (ST elevation myocardial infarction) I21.3 Cardiogenic shock R57.0 Heart block AV third degree I44.2 Diabetes mellitus E11.9
--- NOTE | 2025-04-06 08:32 | Cardiology Progress Note ---
Date of Service April 06, 2025 Assessment & Plan (1) STEMI (ST elevation myocardial infarction): Plan: 100% mid RCA post TALYA 2. Complete heart block with MIpost transvenous pacemaker 3. Transient cardiogenic shock 4. Type 2 diabetes 5. Hypertension 6. DyslipidemiaLDL 144 7. Preserved LV functionEF 55% inferior/inferolateral hypokinesis Patient doing well this morning. Nausea improved. No chest pain. Troponin peaking Hemodynamically and electrically stable. Has not required use of pacemaker this morning. Baseline ECG with no conduction abnormalities. Echocardiogram this morning shows preserved LV function. Removed transvenous pacemaker and venous sheath at bedside this morning. Continue to monitor telemetry, will continue to hold off on beta-luis a for now Integrilin discontinued Continue DAPT with aspirin, ticagrelor Restarted on home lisinopril this morning Reluctant to retry statin after experience with pain years ago while on atorvastatin (also had kidney stones at the time). Agreeable to trying rosuvastatin Continue PPI Long-term consider SGLT2 or GLP-1 From a cardiac standpoint okay with transfer to telemetry. Possible discharge tomorrow. Appreciate ICU and hospital medicine care. Admission and Anticipated Discharge Date Admission Date: April 05, 2025 Subjective Feeling well this morning. Had some episodes of nausea with bradycardia overnight. This morning nausea resolved. No chest pain or shortness of breath. Telemetry reviewedno significant arrhythmias. No recent pacing Review of Systems Review of Systems: All systems reviewed & are unremarkable except as noted in HPI & below Physical Exam Physical Exam: General: Comfortable HEENT: Sclerae anicteric Lungs: Clear to auscultation bilaterally Cardiac: Regular rate and rhythm, no murmurs. Vascular: Right radial artery access site with diffuse ecchymosis extending from thumb up to mid forearm. Intact radial pulse. Normal sensation/capillary refill distally. Oozing around right CFV access site, no hematoma Abdomen: Soft, nontender Extremities: Well perfused, no peripheral edema Neuro: Nonfocal Psych: Alert orient x3, normal affect and mood Results & Data Vital Signs (Past 12 Hours) Vital Signs Pulse Resp BP Pulse Ox 04/06/25 06:00 120/64 04/06/25 05:54 83 20 97 04/06/25 05:42 81 18 96 04/06/25 05:30 139/70 04/06/25 05:24 85 14 98 04/06/25 05:18 81 13 98 04/06/25 05:00 127/68 04/06/25 04:57 77 19 97 04/06/25 04:33 78 18 96 04/06/25 04:30 99/61 L 04/06/25 04:00 103/59 L 04/06/25 04:00 76 14 97 04/06/25 03:24 78 16 96 04/06/25 03:06 78 17 93 04/06/25 03:00 120/67 04/06/25 02:36 77 17 95 04/06/25 02:30 115/63 04/06/25 02:09 75 12 93 04/06/25 02:00 130/73 04/06/25 01:33 82 17 95 04/06/25 01:30 143/74 H 04/06/25 01:27 76 12 95 04/06/25 01:00 136/71 04/06/25 00:51 77 15 95 04/06/25 00:42 80 15 95 04/06/25 00:30 143/77 H 04/06/25 00:00 152/90 H 04/06/25 00:00 79 04/05/25 23:51 79 12 97 04/05/25 23:42 82 15 96 04/05/25 23:30 160/92 H 04/05/25 23:09 79 14 96 04/05/25 23:06 149/82 H 04/05/25 21:45 150/103 H 04/05/25 21:30 87 18 99 04/05/25 21:30 165/91 H 04/05/25 21:00 83 13 97 PG Care Time/CCT Total # of Minutes Spent Total Time Spent with Patient: Total time spent is greater than 50% in coordination of care (as documented) at patient's floor/unit and/or counseling patient: Coding Level of Care Code 30966 SUB INP/OBS CARE 3/50MIN Diagnoses STEMI (ST elevation myocardial infarction) I21.3
--- NOTE | 2025-04-06 08:51 | XCELERA ---
[id number] [id number]
[2025-04-06] MEDS: ROSUVASTATIN CALCIUM 20 MG TAB PO SCH (10:51)
[2025-04-06 11:10] LABS: Hemoglobin A1C 6.8 % (4.5-5.6)
--- NOTE | 2025-04-06 12:33 | Electrocardiogram Report ---
Test Reason : Blood Pressure : */* mmHG Vent. Rate : 35 BPM Atrial Rate : 38 BPM P-R Int : * ms QRS Dur : 98 ms QT Int : 528 ms P-R-T Axes : 60 50 95 degrees QTcB Int : 403 ms Sinus bradycardia with A-V dissociation and Junctional bradycardia Inferior infarct ACUTE MT / STEMI Consider right ventricular involvement in acute inferior infarct Abnormal ECG When compared with ECG of 17-Apr-2023 18:30, Significant changes have occurred Confirmed by Matthias Hall ([id number]) on 04/06/2025 12:32:37 PM Referred By: Neo Barbosa Confirmed By: Matthias Hall
--- NOTE | 2025-04-06 12:36 | Electrocardiogram Report ---
Test Reason : Blood Pressure : */* mmHG Vent. Rate : 92 BPM Atrial Rate : 92 BPM P-R Int : 192 ms QRS Dur : 90 ms QT Int : 382 ms P-R-T Axes : 80 36 88 degrees QTcB Int : 472 ms Normal sinus rhythm * ACUTE CA Inferior infarct , possibly acute Consider right ventricular involvement in acute inferior infarct Abnormal ECG When compared with ECG of 05-Apr-2025 16:29, (unconfirmed) Significant changes have occurred Confirmed by Matthias Hall ([id number]) on 04/06/2025 12:36:19 PM Referred By: Neo Barbosa Confirmed By: Matthias Hall
--- NOTE | 2025-04-06 13:13 | Pharmacy Report ---
Pharmacy Glycemic Short Note 2 - Date of Service April 06, 2025 - Glycemic Short BSG Results (Last 24 hours): 04/05/25 04/05/25 04/05/25 16:37 16:39 18:23 Glucose 251 H POC Glucose 183 H POC Glucose (other) 239 H 04/05/25 04/06/25 04/06/25 20:27 00:12 04:29 Glucose 184 H POC Glucose 223 H 140 H POC Glucose (other) 04/06/25 04/06/25 04/06/25 04:32 07:29 11:00 Glucose POC Glucose 171 H 172 H 158 H POC Glucose (other) OUTPATIENT ANTIDIABETIC REGIMEN: * glipizide 5 mg qd, metforminn 500 mg BID * A1c 6.8% 04/06/25 ASSESSMENT: * Patient admitted with complete heart block/STEMI, s/p PCI w/ TALYA x 1 * BSGs initially elevated have trended downward to goal with basal/bolus * Continue with 10 units BID of lantus. * Novolog ~ weight stress 2 dosing. PLAN FOR INPATIENT GLYCEMIC CONTROL: * Hold outpatient oral diabetes medications * Basal insulin * Lantus 10 units SQ BID * Bolus insulin * NovoLog per scale ACHS or Q6hrs while NPO * Goal Range: Low 120 mg/dL - High 160 mg/dL * Correction Factor: 25 mg/dL/unit * Nutritional / Prandial insulin per carb ratio of 1 unit per 9 grams CHO consumed
--- NOTE | 2025-04-06 21:55 | Hospitalist Progress Note ---
Date of Service April 06, 2025 Assessment & Plan (1) Heart block AV third degree: (2) STEMI (ST elevation myocardial infarction): (3) Hyperglycemia: (4) Cardiogenic shock: Plan #Cardiogenic Shock/ STEMI/ third degree AV block in a Patient with PMH of dyslipidemia/ HTN admitted to the ICU for above. S/p heart cath : Inferior STEMI/100% occluded mid RCA with heavy thrombus burden Pressors discontinued temporary pacemaker: limited activty,; patient has been mainting his heart rate Loaded with ticagrelor/ASA continue statin #Diabetes Mellitus 2 with hyperglycemia glycemic control critical care glucose management #Dyslipidemia continue statin Admission and Anticipated Discharge Date Admission Date: April 05, 2025 Subjective Patient reports no new symptoms. He reports his hand is feeling better. Physical Exam Constitutional: WD/WN, vitals as above Eyes: PERRL, conjunctivae normal, anicteric sclerae ENMT: external ear and nose normal, oropharynx normal Neck: trachea midline, no thyromegaly Respiratory: normal respiratory effort, lungs clear to auscultation Cardiovascular: RRR, no murmur, no edema Gastrointestinal (Abdomen): normal bowel sounds, soft, nontender, no hepatosplenomegaly Skin: no rashes, warm and dry Neurologic: PERRL, EOMI, accommodation nl, no face palsy, no dysarthria Psychiatric: A+Ox3, euthymic affect Lymphatic: no cervical or axillary lymphadenopathy Results & Data Results & Data Vital Signs (Past 12 Hours) Vital Signs Pulse Resp BP 04/06/25 18:12 78 17 04/06/25 17:06 73 13 112/61 04/06/25 16:03 73 17 04/06/25 16:01 113/58 L 04/06/25 16:00 76 04/06/25 15:42 74 15 04/06/25 15:36 71 12 04/06/25 15:36 106/56 L 04/06/25 15:00 74 20 04/06/25 14:00 70 8 L 04/06/25 13:03 75 23 04/06/25 12:39 75 11 L 04/06/25 12:19 112/61 04/06/25 12:15 79 14 04/06/25 12:09 81 19 04/06/25 11:31 113/74 04/06/25 11:30 79 18 04/06/25 11:03 74 16 04/06/25 11:00 107/71 04/06/25 10:57 76 17 04/06/25 10:38 106/64 04/06/25 10:36 76 9 L 04/06/25 10:30 90/56 L 04/06/25 10:27 75 14 04/06/25 10:00 81 19 PG Care Time/CCT Total # of Minutes Spent Total Time Spent with Patient: Total time spent is greater than 50% in coordination of care (as documented) at patient's floor/unit and/or counseling patient: Coding Level of Care Code 15434 SUB INP/OBS CARE 3/50MIN Diagnoses Heart block AV third degree I44.2 STEMI (ST elevation myocardial infarction) I21.3 Hyperglycemia R73.9 Cardiogenic shock R57.0
[2025-04-07 04:41] LABS: Hematocrit (blood only) 37.9 % (42.0-52.0); Hemoglobin 13.0 g/dl (14.0-18.0); Immature Granulocytes # (auto) 0.02 K/uL (0.01-0.20); Immature Granulocytes % (auto) 0.2 %; Mean Corpuscular Hemoglobin 28.4 pg (25.0-34.0); Mean Corpuscular Volume 82.9 fL (80.0-100.0); Platelet Count 153 K/uL (130-400); RDW Standard Deviation 38.7 fL (36.4-46.3); Red Blood Count 4.57 M/uL (4.70-6.10); White Blood Count 9.11 K/ul (4.8-10.8)
[2025-04-07 04:56] LABS: Anion Gap 8.0 (3-11); Blood Urea Nitrogen 20.0 mg/dl (6-23); Calcium 8.7 mg/dl (8.6-10.3); Carbon Dioxide 29.0 mmol/L (21-32); Chloride 104.0 mmol/L (98-107); Creatinine Clr Calc Pharmacy 100.1 ml/min; Glucose 89.0 mg/dl (70-99(Fasting)); Magnesium 2.1 mg/dl (1.7-2.4); Potassium 3.6 mmol/L (3.5-5.1); Sodium 141.0 mmol/L (136-145)
[2025-04-07] MEDS: ICU ELECTROLYTE REPLACEMENT PROTOCOL SCH (06:52)
[2025-04-07 08:12] VITALS: BP 150/93; PULSE 85; RESP 18; O2SAT 97
[2025-04-07] MEDS: POTASSIUM CHLORIDE CRTAB 20 MEQ TABCR PO SCH (08:53)
--- NOTE | 2025-04-07 11:34 | Cardiology Progress Note ---
Date of Service April 07, 2025 Assessment & Plan (1) STEMI (ST elevation myocardial infarction): Plan: 100% mid RCA post TALYA 2. Complete heart block with MIpost transvenous pacemaker 3. Transient cardiogenic shock 4. Type 2 [id number] 6.8 5. Hypertensionpreviously on MIKEL/thiazide 6. DyslipidemiaLDL 144 7. Preserved LV functionEF 55% inferior/inferolateral hypokinesis Continues to do well from a cardiac standpoint. No recurrent anginal symptoms. Troponin peaked. Remained hemodynamically and electrically stable overnight. From a cardiac standpoint okay with discharge today. Continue DAPT with aspirin, ticagrelor Home on reduced dose lisinopril 20 mg daily. Will hold prior HCTZ. His will monitor daily blood pressures. Resume as needed as an outpatient. Will hold off on beta-luis a in the setting of prior bradycardia and preserved LV function. Continue rosuvastatin 20 mg daily Continue PPI resume Long-term consider SGLT2 or GLP-1 We briefly discussed cardiac rehab. Agreeable and will arrange as an outpatient Follow-up with me in 1 to 2 weeks. Admission and Anticipated Discharge Date Admission Date: April 05, 2025 Subjective Feeling well this morning. Up walking in the halls without any chest pain or shortness of breath. Does report some baseline unsteadiness. Telemetry reviewedno events. Review of Systems Review of Systems: All systems reviewed & are unremarkable except as noted in HPI & below Physical Exam Physical Exam: General: Comfortable HEENT: Sclerae anicteric Lungs: Clear to auscultation bilaterally Cardiac: Regular rate and rhythm, no murmurs. Vascular: Right radial artery access site with diffuse ecchymosis extending from thumb up to mid forearm. Intact radial pulse. Normal sensation/capillary refill distally. right CFV access site, no hematoma Abdomen: Soft, nontender Extremities: Well perfused, no peripheral edema Neuro: Nonfocal Psych: Alert orient x3, normal affect and mood Results & Data Vital Signs (Past 12 Hours) Vital Signs Pulse Resp BP Pulse Ox 04/07/25 08:06 85 18 04/07/25 08:00 78 04/07/25 07:30 74 22 04/07/25 07:03 74 12 97 04/07/25 07:00 150/93 H 04/07/25 06:48 74 20 100 04/07/25 06:39 77 33 H 96 04/07/25 06:00 163/88 H 04/07/25 06:00 69 12 96 04/07/25 05:00 170/97 H 04/07/25 05:00 81 15 98 04/07/25 04:15 77 22 180/91 H 96 04/07/25 03:00 76 18 112/64 95 04/07/25 03:00 112/64 04/07/25 03:00 70 15 94 04/07/25 02:00 70 16 95 04/07/25 02:00 114/64 04/07/25 01:00 168/94 H 04/07/25 01:00 168/94 H 04/07/25 01:00 73 10 L 96 04/07/25 00:00 71 8 L 98 04/07/25 00:00 142/74 H 04/07/25 00:00 74 PG Care Time/CCT Total # of Minutes Spent Total Time Spent with Patient: Total time spent is greater than 50% in coordination of care (as documented) at patient's floor/unit and/or counseling patient: Coding Level of Care Code 00230 SUB INP/OBS CARE 2/35MIN Diagnoses STEMI (ST elevation myocardial infarction) I21.3
--- NOTE | 2025-04-07 22:51 | Discharge Summary ---
Discharge Summary Date of Service April 07, 2025 Principal Dx & Hospital Course #1 = Principal Diagnosis (1) Heart block AV third degree: (2) STEMI (ST elevation myocardial infarction): (3) Hyperglycemia: (4) Cardiogenic shock: Plan #Cardiogenic Shock/ STEMI/ third degree AV block in a Patient with PMH of dyslipidemia/ HTN admitted to the ICU for above. S/p heart cath : Inferior STEMI/100% occluded mid RCA with heavy thrombus burden Pressors discontinued temporary pacemaker: limited activty,; patient has been mainting his heart rate Loaded with ticagrelor/ASA, will continue as an outpatieny. continue statin; will f/u with PCP and cardiology #Diabetes Mellitus 2 with hyperglycemia glycemic control while in house. will resume home meds at discharge. #Dyslipidemia continue statin Admission HPI Per Admitting Provider 74 yo male rwith PMH of HTN, Dyslipidemia, presents to the hospital after having a syncopal episode. Patient reported having chest pain and abdominal pain after a bowel movement. This then led to an episode of nausea and vomiting. Patient then passed out around 3 pm. His heard a thud and found him and immediately called 911. Patient was placed in an ambulance to the ED for a heart block and a STEMI. Discharge Exam Constitutional WD/WN, vitals as above Eyes PERRL, conjunctivae normal, anicteric sclerae ENMT external ear and nose normal, oropharynx normal Neck trachea midline, no thyromegaly Respiratory normal respiratory effort, lungs clear to auscultation Cardiovascular RRR, no murmur, no edema Gastrointestinal (Abdomen) normal bowel sounds, soft, nontender, no hepatosplenomegaly Skin no rashes, warm and dry Neurologic PERRL, EOMI, accommodation nl, no face palsy, no dysarthria Psychiatric A+Ox3, euthymic affect Lymphatic no cervical or axillary lymphadenopathy Discharge Plan Discharge Items Patient Disposition: Home - Self-Care Reason For Visit: STEMI Discharge Diagnosis: STEMI Condition on Discharge: Critical Activity: Resume your previous activity Non-emergency contact: Primary Care Provider Call non-emergency contact if: you have any medication questions Follow-up/Referrals: Rell Ron MD [Primary Care Provider] - 04/13/25 2:45 pm (Scheduled with Dr. Mukherjee) Diet: Carb Consistent or DM2 and Heart Healthy Addtl Attending Provider Instructions: Home Care: * Take your medications exactly as directed. Don't skip doses. * Remember that recovery after a heart attack takes time. Plan to rest for at lease 4-8 weeks while you recover. Then return to normal activity when your doctor says it's okay. * Ask your doctor about joining a heart rehabilitation program. * Tell your doctor if you are feeling depressed. Feelings of sadness are common after a heart attack, but it is important that you speak to someone if you are feeling overwhelmed by these feelings. * If you are having chest pain, call 911 for an ambulance. Do NOT drive yourself to the hospital. * Ask your family members to learn CPR. * Learn to take your own blood pressure and pulse. Keep a record of your results. Ask your doctor when you should seek emergency medical attention. He or she will tell you which blood pressure reading is dangerous. Lifestyle Changes: * Maintain a healthy weight. Get help to lose any extra pounds. * Cut back on salt. * Limit canned, dried, packaged, and fast foods. * Don't add salt to your food. * Season foods with herbs instead of salt when you cook. * Break the smoking habit. Enroll in a stop-smoking program to improve your chances of success. * Limit fatty foods. * Ask your doctor about having your lipid levels checked regularly. * Build up your activity according to your doctor's recommendation. * Ask your doctor when it's okay to resume sexual activity. * Tell your doctor about any erectile dysfunction (ED) medication you are taking. Some ED medications are not safe if you take certain heart medications. * Try to manage stress. Follow Up: It is important for you to keep your follow up appointments with your medical provider. Pending Studies at Discharge: No Stand-Alone Forms: My [facility] [employer], Smoking Cessation Medications and DC Order Prescriptions: New aspirin 81 mg Tablet,Delayed Release (Dr/Ec) 81 mg PO QAM Qty: 30 0RF rosuvastatin 20 mg Tablet 20 mg PO QAM Qty: 30 0RF ticagrelor [Brilinta] 90 mg Tablet 90 mg PO BID Qty: 60 0RF nitroglycerin 0.4 mg tablet, sublingual 0.4 mg sublingual Q5M Qty: 5 0RF Rx Instructions: under the tongue or between the cheek and gum at the first sign of an angina attack. 1 tablet may be used every 5 minutes as needed, for up to 15 minutes. Call 911 if you need a second dose Continued glipizide 5 mg tablet 5 mg PO QAM metformin 500 mg tablet 500 mg PO BID 30 Days Qty: 60 2RF Changed lisinopril 20 mg tablet 20 mg PO DAILY Qty: 30 0RF Discontinued hydrochlorothiazide 25 mg tablet 25 mg PO DAILY No Action cholecalciferol (vitamin D3) [Vitamin D3] 50 mcg (2,000 unit) Capsule 50 mcg PO DAILY Eylea 2 mg/0.05 mL Solution 0 mg INTRAVITREAL DIRECTED Rx Instructions: DIRECTED BI-MONTHLY metoprolol succinate 25 mg capsule,sprinkle,ER 24hr 25 mg PO DAILY Qty: 30 1RF hydrochlorothiazide 25 mg tablet 25 mg PO DAILY Qty: 30 1RF lisinopril 40 mg tablet 40 mg PO DAILY Qty: 30 1RF Discharge Orders: Discharge Order (Routine); Ordered 04/07/25 Ordered By: Neo Blue/Other Patient Handouts: Managing Type 2 Diabetes Admission Data Admit Date/Time: 04/05/25 16:46 Attending Provider: Neo Barbosa Admit Provider: Neo Barbosa Primary Care Provider: Rell Ron Other Providers: Kyle Crowley; Solo Mijares; Edin Johnson; Beulah Ellington; Efrain Coburn; Diane Jolly; Noel Blanca; Shannan Medina; Neo Barbosa; Rell Parsons Other Interventions: Discharge Summary Assessment (RN) Last Done: 04/07/25 13:16 Hospital Stay Data Consultations 04/05/25 16:42 Consult [employer] Routine 04/05/25 16:52 ED Decision to Admit Stat 04/05/25 22:13 Consult Cardiology Routine Procedures Performed Operation Date: 04/05/25 16:30 Actual Procedures p Cineradiography w/Routine Exam - Rell Parsons MD p Aspiration/PCI w/TALYA for Stemi - Rell Parsons MD s Ins/RemTemporary Transvenous Pacer - Rell Parsons MD Diagnostic Imagining Performed 04/05/25 16:30 CL Cath Imgs for PACS use only Stat Pending Results Patient Have Any Pending Studies at Discharge: No Discharge Instructions Given to Patient (Per Discharging Provider) Home Care: * Take your medications exactly as directed. Don't skip doses. * Remember that recovery after a heart attack takes time. Plan to rest for at lease 4-8 weeks while you recover. Then return to normal activity when your doctor says it's okay. * Ask your doctor about joining a heart rehabilitation program. * Tell your doctor if you are feeling depressed. Feelings of sadness are common after a heart attack, but it is important that you speak to someone if you are feeling overwhelmed by these feelings. * If you are having chest pain, call 911 for an ambulance. Do NOT drive yourself to the hospital. * Ask your family members to learn CPR. * Learn to take your own blood pressure and pulse. Keep a record of your results. Ask your doctor when you should seek emergency medical attention. He or she will tell you which blood pressure reading is dangerous. Lifestyle Changes: * Maintain a healthy weight. Get help to lose any extra pounds. * Cut back on salt. * Limit canned, dried, packaged, and fast foods. * Don't add salt to your food. * Season foods with herbs instead of salt when you cook. * Break the smoking habit. Enroll in a stop-smoking program to improve your chances of success. * Limit fatty foods. * Ask your doctor about having your lipid levels checked regularly. * Build up your activity according to your doctor's recommendation. * Ask your doctor when it's okay to resume sexual activity. * Tell your doctor about any erectile dysfunction (ED) medication you are taking. Some ED medications are not safe if you take certain heart medications. * Try to manage stress. Follow Up: It is important for you to keep your follow up appointments with your medical provider. Total Time Total Time Spent Total Time Spent (In Minutes): 32 Coding Level of Care Code 11214 INP/OBS DISCH >30 MIN Diagnoses Heart block AV third degree I44.2 STEMI (ST elevation myocardial infarction) I21.3 Hyperglycemia R73.9 Cardiogenic shock R57.0
== END 2025-04-07 14:23 | disposition home or self-care (01) | DRG 321 ==
LOC: ED 16:25 → CC 16:45 → 1E 16:46 → CC 16:53